=== PATIENT | male | born 1980 ===

== ENCOUNTER 2021-09-16 08:25 | Emergency (ER) ==
[~2021-09-16] VITALS: Ht 167.6 cm; Wt 67.6 kg
[2021-09-16] MEDS ORDERED: TRAZ1TAB14 PO (08:34)
[2021-09-16] MEDS ORDERED: OMEP10CASR PO (08:34)
[2021-09-16] MEDS ORDERED: CLON-412 PO (08:34)
== END 2021-09-16 08:58 | disposition left against medical advice (07) ==
LOC: M ED 08:25
DX: Z53.21 Procedure and treatment not carried out due to patient leaving prior to being seen by health care provider (principal)